=== PATIENT | female | born 1975 | race Caucasian/White ===

== ENCOUNTER → 2018-10-04 | Emergency (ER) | payer MEDICAID ==
[~2018-10-04] VITALS: Ht 154.9 cm; Wt 82.0 kg
[~2018-10-04] MED LIST: ALPR-624 PO; DOCU-28 PO; HYDR-4383 PO; IBUP-1984 PO; ONDA4TAB6 PO
[2018-10-04 15:28] VITALS: BP 115/80
== END | disposition home or self-care (01) ==
LOC: ER 15:24
DX: F41.9 Anxiety disorder, unspecified (principal); M79.671 Pain in right foot; F12.10 Cannabis abuse, uncomplicated; F15.10 Other stimulant abuse, uncomplicated; Z56.0 Unemployment, unspecified; Z90.49 Acquired absence of other specified parts of digestive tract; Z90.710 Acquired absence of both cervix and uterus; Z90.89 Acquired absence of other organs; Z88.5 Allergy status to narcotic agent
CPT/HCPCS: 99283

== ENCOUNTER 2018-11-06 11:11 | Emergency (ER) | payer MEDICAID ==
[~2018-11-06] VITALS: Ht 154.9 cm; Wt 73.0 kg
[2018-11-06 11:33] VITALS: BP 148/84
[2018-11-06] MEDS ORDERED: diazepam 5mg tablet PO ONE (12:15)
[2018-11-06] MEDS ORDERED: HYDROcodone/acetaminophen 5mg/325mg tablet PO ONE (12:15)
[2018-11-06] MEDS ORDERED: HYDR-4384 PO (13:35)
== END 2018-11-06 14:15 | disposition home or self-care (01) ==
LOC: ER 11:11
DX: S32.2XXA Fracture of coccyx, initial encounter for closed fracture (principal); S30.0XXA Contusion of lower back and pelvis, initial encounter; S09.8XXA Other specified injuries of head, initial encounter; F41.9 Anxiety disorder, unspecified; F12.10 Cannabis abuse, uncomplicated; F15.10 Other stimulant abuse, uncomplicated; Z56.0 Unemployment, unspecified; Z90.49 Acquired absence of other specified parts of digestive tract; Z90.710 Acquired absence of both cervix and uterus; Z90.89 Acquired absence of other organs; Z88.5 Allergy status to narcotic agent; Z88.6 Allergy status to analgesic agent; Z79.899 Other long term (current) drug therapy; W00.2XXA Other fall from one level to another due to ice and snow, initial encounter; Y93.89 Activity, other specified; Y92.89 Other specified places as the place of occurrence of the external cause; Y99.0 Civilian activity done for income or pay
CPT/HCPCS: 72100; 99283

== ENCOUNTER 2018-12-19 18:10 | Emergency (ER) | payer MEDICAID ==
[~2018-12-19] VITALS: Ht 154.9 cm; Wt 72.7 kg
[~2018-12-19 18:10] MED LIST changes: +ORPH100T2 PO
[2018-12-19] MEDS ORDERED: AZIT250T2 PO (18:39)
[2018-12-19] MEDS ORDERED: ALBU6.7H INH (18:39)
[2018-12-19] MEDS ORDERED: PRED20TA PO (18:39)
[2018-12-19] MEDS ORDERED: ipratropium/albuterol 3ml nebule NEB ONE (18:40)
--- NOTE | 2018-12-19 18:45 | NUR ---
RT AT BEDSIDE.
[2018-12-19] MEDS ORDERED: dexamethasone sod phosphate 10mg/ml inj IM STA (19:05)
[2018-12-19 19:11] VITALS: BP 129/85
== END 2018-12-19 19:11 | disposition home or self-care (01) ==
LOC: ER 18:11
DX: J20.9 Acute bronchitis, unspecified (principal); F12.90 Cannabis use, unspecified, uncomplicated; F15.90 Other stimulant use, unspecified, uncomplicated; Z90.49 Acquired absence of other specified parts of digestive tract; Z90.710 Acquired absence of both cervix and uterus; Z56.0 Unemployment, unspecified; Z88.6 Allergy status to analgesic agent
CPT/HCPCS: 71046; 94640; 94760; 99283

== ENCOUNTER 2019-01-09 09:27 | Emergency (ER) | payer MEDICAID ==
[~2019-01-09] VITALS: Ht 154.9 cm; Wt 77.0 kg
[~2019-01-09 09:27] MED LIST changes: +ALBU6.7H INH
[2019-01-09 10:03] VITALS: BP 131/82
[2019-01-09] MEDS ORDERED: ALPR-624 PO (10:20)
== END 2019-01-09 10:32 | disposition home or self-care (01) ==
LOC: ER 09:27
DX: F41.9 Anxiety disorder, unspecified (principal); F12.90 Cannabis use, unspecified, uncomplicated; F15.90 Other stimulant use, unspecified, uncomplicated; Z90.49 Acquired absence of other specified parts of digestive tract; Z90.710 Acquired absence of both cervix and uterus; Z90.89 Acquired absence of other organs; Z88.5 Allergy status to narcotic agent; Z88.6 Allergy status to analgesic agent; Z79.899 Other long term (current) drug therapy; Z56.0 Unemployment, unspecified
CPT/HCPCS: 99284

== ENCOUNTER 2019-01-12 16:00 | Emergency (ER) | payer MEDICAID ==
[~2019-01-12] VITALS: Ht 154.9 cm; Wt 76.8 kg
[2019-01-12 16:03] VITALS: BP 120/80
[2019-01-12] MEDS ORDERED: LIDOcaine 1% w/epiNEPHrine 1:200,000 30ml vial IM ONE (17:30)
== END 2019-01-12 19:06 | disposition home or self-care (01) ==
LOC: ER 16:01
DX: S61.213A Laceration without foreign body of left middle finger without damage to nail, initial encounter (principal); I49.9 Cardiac arrhythmia, unspecified; F12.90 Cannabis use, unspecified, uncomplicated; F15.90 Other stimulant use, unspecified, uncomplicated; Z90.49 Acquired absence of other specified parts of digestive tract; Z90.710 Acquired absence of both cervix and uterus; Z56.0 Unemployment, unspecified; Z88.5 Allergy status to narcotic agent; Z79.899 Other long term (current) drug therapy; W26.8XXA Contact with other sharp object(s), not elsewhere classified, initial encounter; Y93.89 Activity, other specified; Y92.89 Other specified places as the place of occurrence of the external cause; Y99.8 Other external cause status
CPT/HCPCS: 12001; 99283; J3490

== ENCOUNTER 2019-02-07 16:51 | Emergency (ER) | payer MEDICAID ==
[~2019-02-07] VITALS: Ht 154.9 cm; Wt 76.8 kg
[2019-02-07 17:56] LABS: BASOPHILS # (AUTO) 0.1 X10'3 (0-0.2); BASOPHILS % (AUTO) 0.7 % (0-1); EOSINOPHILS # (AUTO) 0.2 X10'3 (0-0.9); EOSINOPHILS % (AUTO) 1.9 % (0-6); HEMATOCRIT 44.9 % (35.0-45.0); HEMOGLOBIN 15.4 g/dl (12.0-16.0); LYMPHOCYTES # (AUTO) 3.7 X10'3 (1.1-4.8); LYMPHOCYTES % (AUTO) 30.7 % (21-51); MEAN CORPUSCULAR HEMOGLOBIN 32.2 PG (27.0-31.0); MEAN CORPUSCULAR HGB CONC 34.4 g/dL (33.0-36.5); MEAN CORPUSCULAR VOLUME 93.7 FL (78-98); MEAN PLATELET VOLUME 8.8 FL (7.4-10.4); MONOCYTES # (AUTO) 1.2 X10'3 (0-0.9); MONOCYTES % (AUTO) 9.9 % (2-12); NEUTROPHILS # (AUTO) 6.8 X10'3 (1.8-7.7); NEUTROPHILS % (AUTO) 56.8 % (42-75); PLATELET COUNT 220 X10'3 (140-440)
[2019-02-07 18:01] LABS: CLARITY,URINE CLOUDY (Clear); COLOR,URINE YELLOW (Yellow); GLUCOSE, URINE NEGATIVE (Neg); KETONES,URINE NEGATIVE (Neg); LEUKOCYTE ESTERASE ,URINE TRACE (Neg); NITRITES, URINE NEGATIVE (Neg); OCCULT BLOOD,URINE NEGATIVE (Neg); PH,URINE 5.5 (4.8-8.0); PROTEIN,URINE NEGATIVE (Neg); UROBILINOGEN,URINE 0.2 E.U/dL (0.2-1.0)
[2019-02-07 18:02] LABS: UA COLLECTION TYPE CLN CATCH MIDSTREAM
[2019-02-07 18:11] LABS: ALANINE AMINOTRANSFERASE 31 U/L (12-78); ALBUMIN 3.5 G/DL (3.4-5.0); ALBUMIN/GLOBULIN RATIO 0.9 (1.1-1.5); ALKALINE PHOSPHATASE 93 IU/L (46-116); ANION GAP 12 (8-16); BILIRUBIN,TOTAL 0.2 MG/DL (0.1-1.0); BLOOD UREA NITROGEN 18 MG/DL (7-18); BUN/CREATININE RATIO 17.3 (6.6-38.0); CALCIUM 9.2 MG/DL (8.5-10.1); CHLORIDE 104 MMOL/L (99-107); CREATININE 1.04 MG/DL (0.40-0.90); SODIUM 139 MMOL/L (135-145); TOTAL CARBON DIOXIDE 22.6 MMOL/L (24-32); TOTAL PROTEIN 7.2 G/DL (6.4-8.2); eGFR 58 ML/MIN
[2019-02-07 18:12] LABS: BACTERIA,URINE 1+ /HPF (Neg); MUCUS STRANDS FEW /LPF (Neg); RBC,URINE 0-2 /HPF (0-2); SQUAMOUS EPITHELIAL CELL,UR MANY /LPF (FEW)
[2019-02-07 18:23] LABS: ASPARTATE AMINO TRANSFERASE 27 U/L (10-37); GLUCOSE 102 MG/DL (70-104)
[2019-02-07 18:25] LABS: POTASSIUM 3.6 MMOL/L (3.5-5.1)
[2019-02-07] MEDS ORDERED: normal saline 1000ML IV soln IVB ONE (18:25)
[2019-02-07] MEDS ORDERED: morphine 4 MG/ML inj SYRINge IV PRN (18:25)
[2019-02-07] MEDS ORDERED: ondansetron/PF 4mg/2ml inj IV ONE (18:25)
[2019-02-07] MEDS ORDERED: SULF1TAB49 PO (20:12)
[2019-02-07] MEDS ORDERED: CefTRIAXone 1000mg IM Kit (w/lidocaine diluent) IM ONE (20:20)
[2019-02-07 20:32] VITALS: BP 126/80
== END 2019-02-07 20:34 | disposition home or self-care (01) ==
LOC: ER 16:52
DX: N39.0 Urinary tract infection, site not specified (principal); M54.5 Low back pain; R10.32 Left lower quadrant pain; F12.90 Cannabis use, unspecified, uncomplicated; F15.90 Other stimulant use, unspecified, uncomplicated; Z56.0 Unemployment, unspecified; Z90.49 Acquired absence of other specified parts of digestive tract; Z90.710 Acquired absence of both cervix and uterus; Z88.5 Allergy status to narcotic agent; Z88.6 Allergy status to analgesic agent
CPT/HCPCS: 36415; 74176; 80053; 81001; 85025; 85610; 96372; 96374; 96375; 99284; J0696; J2270; J2405; J7030

== ENCOUNTER 2019-03-27 19:26 | Emergency (ER) | payer MEDICAID ==
[~2019-03-27] VITALS: Ht 154.9 cm; Wt 77.0 kg
[2019-03-27 19:27] VITALS: BP 135/77
[2019-03-27] MEDS ORDERED: HYDROcodone/acetaminophen 5mg/325mg tablet PO ONE (20:10)
[2019-03-27] MEDS ORDERED: ondansetron 4mg rapidly disintigrating tab PO ONE (20:10)
[2019-03-27] MEDS ORDERED: HYDR-3965 PO (20:23)
== END 2019-03-27 20:37 | disposition home or self-care (01) ==
LOC: ER 19:26
DX: M25.561 Pain in right knee (principal); R22.41 Localized swelling, mass and lump, right lower limb; F41.9 Anxiety disorder, unspecified; F12.90 Cannabis use, unspecified, uncomplicated; F15.90 Other stimulant use, unspecified, uncomplicated; Z90.49 Acquired absence of other specified parts of digestive tract; Z90.710 Acquired absence of both cervix and uterus; Z90.89 Acquired absence of other organs; Z98.890 Other specified postprocedural states; Z88.5 Allergy status to narcotic agent; Z79.899 Other long term (current) drug therapy; Z56.0 Unemployment, unspecified; X50.1XXA Overexertion from prolonged static or awkward postures, initial encounter; Y93.01 Activity, walking, marching and hiking; Y92.89 Other specified places as the place of occurrence of the external cause; Y99.8 Other external cause status
CPT/HCPCS: 29105; 99284; J2405